=== PATIENT | female | born 1955 | race Hispanic/Latino ===

== ENCOUNTER → 2025-04-20 08:54 | Outpatient (REF) | payer OTHER, SELFPAY | LOC: MRI 08:54 | PROVIDERS: ATTENDING PHYSICIAN Student in an Organized Health Care Education/Training Program; FAMILY PHYSICIAN Family Medicine | DX: I42.2 Other hypertrophic cardiomyopathy (principal) | CPT/HCPCS: 75561; 75565; A9585 ==